=== PATIENT | female | born 1970 | race Caucasian/White ===

== ENCOUNTER 2016-09-13 09:27 | Day surgery (SDC) | payer BC ==
[~2016-09-13] VITALS: Ht 170.2 cm; Wt 109.3 kg
[~2016-09-13 09:27] MED LIST: ALPR0.5T6 PO; CEFAZOLIN 2GM PREMIX 50 ML IV ONE; CITA20TA5 PO; FENTANYL PF 100 MCG/2 ML VIAL. IV PRN; GUAI-40 PO; HYDROMORPHONE 2 MG/ML VIAL. IV PRN; IV RINGERS,LACTATED 1000ML 1,000 ML IV SCH; LABE100T3 PO; LEVO200T5 PO; LEVO25TA4 PO; LIDOCAINE 1% 1 ML SYRINGE. ID PRN; LIDOCAINE 1%/EPI 1:100,000 20 ML VIAL. ONE; MELO-150 PO; MORPHINE SULFATE 2 MG/ML DISP.SYRIN. IV PRN; ONDANSETRON PF 4 MG/2 ML VIAL. IV PRN; PROCHLORPERAZINE 10 MG/2 ML VIAL. IV PRN
[2016-09-13] MEDS ORDERED: ONDANSETRON PF 4 MG/2 ML VIAL. ONE (10:04)
[2016-09-13] MEDS ORDERED: DEXAMETHASONE SOD PHOS 20 MG/5 ML VIAL. ONE (10:04)
[2016-09-13] MEDS ORDERED: LIDOCAINE 2% 100 MG/5 ML DISP.SYRIN. ONE (10:04)
[2016-09-13] MEDS ORDERED: PROPOFOL 20 ML IV ONE ×2 (10:04→12:22)
[2016-09-13] MEDS ORDERED: DESFLURANE 61 TO 120 MINUTES IH ONE (10:04)
[2016-09-13] MEDS ORDERED: MIDAZOLAM HCL 2 MG/2 ML VIAL. ONE (10:04)
[2016-09-13] MEDS ORDERED: FENTANYL PF 100 MCG/2 ML VIAL. ONE (10:05)
[2016-09-13 10:39] LABS: NEG OBC UR NEG; POS OBC UR POS
[2016-09-13] MEDS ORDERED: BUPIVACAINE-EPI 0.5%-1:200000 50 ML VIAL. ONE (12:29)
--- NOTE | 2016-09-13 12:52 | DISCH ---
DISCHARGE INSTRUCTIONS Condition on Discharge Condition on Discharge: Unstable Activity After Discharge Activity Instructions for Disc: Resume previous activity Driving Instructions after Dis: Other, see below (no driving while taking pain meds) Diet after Discharge Diet after Discharge: Regular Wound Incision Care Wound/Incision Care: Other, see below (keep dressing clean and dry for 72 hours , may then remove and shower) Follow-Up Follow up with: Dr Flores in 2 weeks, call for appt [phone] SHELLY FLORES MD Sep 13, 2016 12:51
--- NOTE | 2016-09-13 12:58 | PDOC4 ---
Operative Note Operative Note Operative Note: Preoperative Diagnosis: Right lower quadrant abdominal wall mass Postoperative Diagnosis: Same Procedure: Excision of right lower quadrant abdominal wall mass Surgeon: Eleazar Anesthesia: Gen. EBL: 10 mL Specimen: Right lower quadrant mass to pathology Drains: None Complications: None Indication: The patient is a 46-year-old female who has a sizable palpable mass in the right lower quadrant. CT scan evaluation suggests a large lipoma within the abdominal wall. She requests excision of the mass. The details and risks of surgery were discussed. The risks include bleeding, infection, recurrence, pain, potential need for additional surgery or procedure. She understands and would like to proceed. Description: The patient was taken to the operating room and placed supine on the operating table. Gen. anesthesia was performed. The right lower quadrant was prepped with ChloraPrep and draped in a standard surgical manner. An incision was made with a scalpel directly overlying the mass. Cautery dissection was utilized in subcutaneous tissues. We continued dissection in the deep aspect of the subcutaneous tissues and identified the mass. The mass was comprised of lobulated adipose tissue consistent with a very large lipoma. The mass also appeared to be just deep to the most superficial fascial layer and the lateral abdomen. The mass was mobilized with comminution blunt and cautery dissection from the surrounding tissues. The mass was then completely excised and measured 16 x 8 cm. The mass was sent to pathology for evaluation. A few small bleeding vessels were controlled with cautery. Hemostasis was then good. The superficial fascia was reapproximated with a running 0 Vicryl suture. The subcutaneous tissue was then approximated with 3-0 Vicryl. The skin was then closed with a 4-0 Monocryl running suture. The incision site was infiltrated with half percent Marcaine with epinephrine. Steri-Strips and a sterile dressing were then applied. The patient tolerated the procedure well and was sent to the recovery room in stable condition. At the end of the case all counts were correct. SHELLY FLORES MD Sep 13, 2016 12:58
[2016-09-13] MEDS ORDERED: HYDR-971 AD (13:08)
[2016-09-13] MEDS: FENTANYL PF 100 MCG/2 ML VIAL. IV PRN ×2 (13:20→13:34)
[2016-09-13] MEDS ORDERED: HYDROCODONE/APAP 5/325MG TABLET. ONE (13:40)
[2016-09-13 13:55] VITALS: BP 138/73
--- NOTE | 2016-09-14 13:24 | PATHOLOGY ---
PATHOLOGY REPORT * * * * * * * * FINAL DIAGNOSIS: Fibroadipose tissue, abdominal wall mass: - Lipoma. COMMENT: There is no evidence of malignancy. (JPM:all; d/t: 09/14/2016) REPORT ELECTRONICALLY SIGNED BY: Arturo Cardenas M.D. DATE/TIME: 09/14/2016 13:24 * * * * * * * * GROSS PATHOLOGY: Received in formalin labeled "Tigre Becerril, abdominal wall mass," is a segment of lobulated fibroadipose tissue measuring 13.8 x 9.2 x 4.0 cm in maximum dimensions. Sectioning reveals homogeneous, bright yellow cut surfaces. [employer] tissue is submitted in cassette A1. (CAA; 09/13/2016) INITIAL CPT CODE(S): A; 86257 Professional services performed [place] [address] Technical services performed by [facility] at [address] [place] [address], [facility], [place] [address], [place] [address]. SPECIMEN(S) RECEIVED: A.Abdominal wall mass CLINICAL HISTORY: Abdominal wall mass PATIENT: TIGRE BECERRIL /AGE: 501/07/1970 (Age: 46) PATIENT #: [id number] ALT CASE #: SPECIMEN COLLECTION DATE: 09/13/2016 SPECIMEN RECEIVED DATE: 09/13/2016 [facility] - [address] [place] [address] - PHONE: [phone] * * * END OF REPORT * * *
== END 2016-09-13 14:29 | disposition home or self-care (01) ==
LOC: SURG 09:27
PROVIDERS: ATTEND Surgery
DX: D17.5 Benign lipomatous neoplasm of intra-abdominal organs (principal)
CPT/HCPCS: 22901; 81025; 88304; J0690; J1100; J2250; J2405; J2704; J3010; J7120; J3490

== ENCOUNTER 2018-05-02 08:20 | Emergency (ER) | payer BC ==
[~2018-05-02] VITALS: Ht 172.7 cm; Wt 113.4 kg
[~2018-05-02 08:20] MED LIST changes: -CEFAZOLIN 2GM PREMIX 50 ML IV ONE; -CITA20TA5 PO; +CITA20TA6 PO; -FENTANYL PF 100 MCG/2 ML VIAL. IV PRN; +HYDR-971 AD; -HYDROMORPHONE 2 MG/ML VIAL. IV PRN; -IV RINGERS,LACTATED 1000ML 1,000 ML IV SCH; -LABE100T3 PO; +LABE100T5 PO; -LIDOCAINE 1% 1 ML SYRINGE. ID PRN; -LIDOCAINE 1%/EPI 1:100,000 20 ML VIAL. ONE; -MELO-150 PO; +MELO15TA23 PO; -MORPHINE SULFATE 2 MG/ML DISP.SYRIN. IV PRN; -ONDANSETRON PF 4 MG/2 ML VIAL. IV PRN; -PROCHLORPERAZINE 10 MG/2 ML VIAL. IV PRN
[2018-05-02] MEDS ORDERED: NAPROXEN 500 MG TABLET PO STA (08:40)
--- NOTE | 2018-05-02 08:44 | PHYS DOC ---
Adult General Chief Complaint Chief Complaint: ANKLE PROBLEM HPI HPI Patient is a 48 year old female who presents with 8 out of 10 sharp left lateral ankle pain that began today after she slipped on grass,hyperextended the ankle and fell. Patient denies any loss of consciousness. Patient has not taken anything for her pain. Review of Systems Review of Systems Constitutional: Denies fever or chills [] Musculoskeletal: Left ankle pain Integument: Denies rash or skin lesions [] Neurologic: Denies headache, focal weakness or sensory changes [] All other systems were reviewed and found to be within normal limits, except as documented in this note. Current Medications Current Medications Current Medications Medications (Trade) Dose Ordered Sig/Marquez Start Time Stop Time Status Last Admin Dose Admin Naproxen (Naprosyn) 500 mg 1X STAT 05/02/18 08:40 05/02/18 08:42 DC Allergies Allergies Allergies Coded Allergies Type Severity Reaction Last Updated Verified sulfamethoxazole Allergy Severe Swelling 05/02/18 Yes trimethoprim Allergy Severe Swelling 05/02/18 Yes latex Allergy Intermediate SKIN SENTIVITY AND IRRITATION 05/02/18 Yes Physical Exam Physical Exam Constitutional: Well developed, well nourished, no acute distress, non-toxic appearance. [] Skin: Warm, dry, no erythema, no rash. [] Back: No tenderness, no CVA tenderness. [] Extremities: Left lateral ankle with moderate soft tissue swelling. There is ecchymosis on the left lateral ankle. Tenderness on palpation of the left lateral ankle. Full passive range of motion to the left ankle, full range of motion to the left toes. +2 left pedal pulse. Cap refill is less than 2 seconds to the left toes. Neurologic: Alert and oriented X 3, normal motor function, normal sensory function, no focal deficits noted. [] Psychologic: Affect normal, judgement normal, mood normal. [] Current Patient Data Vital Signs Vital Signs Date Time Temp Pulse Resp B/P (MAP) Pulse Ox O2 Delivery O2 Flow Rate FiO2 05/02/18 08:35 98.2 69 20 187/87 (120) 98 Room Air 98.2 EKG EKG [] Radiology/Procedures Radiology/Procedures []PROCEDURE: ANKLE LEFT 3V Three-view left ankle dated 05/02/2018. No comparison available. Clinical indication: Pain after injury. FINDINGS: 3 views of left ankle show an oblique fracture through the distal fibular shaft, not significant displacement. The distal tibia is grossly intact. There is a small radiolucency at the lateral talar dome seen on only one view. Mild soft tissue swelling. IMPRESSION: 1. Oblique fracture of the distal fibular shaft, not significantly displaced. 2. Small linear radiolucency at the lateral talar dome is indeterminant and seen on only one view. Although this could be artifact, a small nondisplaced fracture or osteochondral impaction fracture is not excluded. Electronically signed by: Aniket Bedolla MD (05/02/2018 8:58 AM) [facility] DICTATED and SIGNED BY: ANIKET BEDOLLA MD DATE: 05/02/18 0857 Course & Med Decision Making Course & Med Decision Making Pertinent Labs and Imaging studies reviewed. (See chart for details) Patient is a 48-year-old female presenting with left lateral ankle pain that began after she hyperextended her ankle and fell. Left ankle xrays interpreted by radiologist-Oblique fracture of the distal fibular shaft, not significantly displaced. Small linear radiolucency at the lateral talar dome is indeterminant and seen on only one view. Although this could be artifact, a small nondisplaced fracture or osteochondral impaction fracture is not excluded. Consulted with Rehana JEWELL for Dr. Livingston she requested we splint patient and have her f/u with their clinic in the course of this week. Patient was placed in a splint by the diagnostic tech, neurovascular exam is intact, ice elevation encouraged. Hydrocodone prescription provided for pain Blood pressure was 187/87, no history of hypertension, she was given pain medicine. Blood pressure be rechecked prior to discharge. Staff Physician Addendum: I was working in the ER during the course of this patient's visit. I was available for consultation as needed, but I was not directly involved in the care of this patient. Dragon Disclaimer Dragon Disclaimer This electronic medical record was generated, in whole or in part, using a voice recognition dictation system. Departure Departure Impression: Primary Impression: Left fibular fracture Additional Impressions: Fracture, talus closed Fall from standing High blood pressure Disposition: 01 HOME, SELF-CARE Condition: STABLE Referrals: HÉCTOR THORNTON PA-C (PCP) REINALDO LIVINGSTON MD call his office office today and set up a follow up appointment. Patient Instructions: Fall Prevention and Home Safety, Fibular Fracture with [facility]hab[facility] Additional Instructions: You were evaluated in the emergency room and noted to have left ankle fracture. Please contact the provided orthopedic doctor today and set up a follow-up appointment. In the meantime ice and elevate the extremity. Take the pain medicine as needed for pain. Do not drive or operate machinery on the pain medicines Scripts Hydrocodone/Apap 5-325 (NORCO 5-325 TABLET) 1 Each Tablet 1 TAB PO Q6HRS PRN for PAIN, #14 TAB Prov: NADER SHARMA APRN 05/02/18 Problem Qualifiers Primary Impression: Left fibular fracture Encounter type: initial encounter Fibula location: distal Fracture type: closed Fracture morphology: other fracture Qualified Codes: S82.832A - Other fracture of upper and lower end of left fibula, initial encounter for closed fracture Additional Impressions: Fracture, talus closed Encounter type: initial encounter Talus location: unspecified portion of talus Fracture alignment: nondisplaced Laterality: left Qualified Codes: S92.102A - Unspecified fracture of left talus, initial encounter for closed fracture Fall from standing Encounter type: initial encounter Qualified Codes: W19.XXXA - Unspecified fall, initial encounter High blood pressure Hypertension type: unspecified Qualified Codes: I10 - Essential (primary) hypertension NADER SHARMA APRN May 02, 2018 08:44 FERCHO MASTERSON MD May 02, 2018 09:43
--- NOTE | 2018-05-02 09:01 | RAD ---
Three-view left ankle dated 05/02/2018. No comparison available. Clinical indication: Pain after injury. FINDINGS: 3 views of left ankle show an oblique fracture through the distal fibular shaft, not significant displacement. The distal tibia is grossly intact. There is a small radiolucency at the lateral talar dome seen on only one view. Mild soft tissue swelling. IMPRESSION: 1. Oblique fracture of the distal fibular shaft, not significantly displaced. 2. Small linear radiolucency at the lateral talar dome is indeterminant and seen on only one view. Although this could be artifact, a small nondisplaced fracture or osteochondral impaction fracture is not excluded. Electronically signed by: Aniket Bedolla MD (05/02/2018 8:58 AM) [facility]
[2018-05-02] MEDS ORDERED: HYDR-971 PO (09:37)
[2018-05-02 10:35] VITALS: BP 167/107
== END 2018-05-02 10:50 | disposition home or self-care (01) ==
LOC: ER 08:20
DX: S82.832A Other fracture of upper and lower end of left fibula, initial encounter for closed fracture (principal); S92.102A Unspecified fracture of left talus, initial encounter for closed fracture; R03.0 Elevated blood-pressure reading, without diagnosis of hypertension; Z88.2 Allergy status to sulfonamides; Z88.1 Allergy status to other antibiotic agents; Z91.040 Latex allergy status; W01.0XXA Fall on same level from slipping, tripping and stumbling without subsequent striking against object, initial encounter; Y93.89 Activity, other specified; Y92.89 Other specified places as the place of occurrence of the external cause; Y99.8 Other external cause status
CPT/HCPCS: 29515; 73610; 99284